=== PATIENT | male | born 2000 | race Caucasian/White ===

== ENCOUNTER 2019-11-22 17:21 | Emergency (ER) | payer OTHER ==
[~2019-11-22] VITALS: Ht 175.3 cm; Wt 90.9 kg
[2019-11-22 17:47] VITALS: TEMP 97.7
[2019-11-22 21:08] VITALS: BP 110/75; PULSE 62
== END 2019-11-22 21:10 | disposition home or self-care (01) ==
LOC: COL.ER 17:21
DX: S01.01XA Laceration without foreign body of scalp, initial encounter (principal); W18.30XA Fall on same level, unspecified, initial encounter; Y92.009 Unspecified place in unspecified non-institutional (private) residence as the place of occurrence of the external cause

== ENCOUNTER → 2019-12-02 | Outpatient (CLI) | payer OTHER ==
[2019-12-02 18:16] VITALS: BP 118/71; PULSE 66; TEMP 99.2
== END ==
LOC: COL.ER 17:49
DX: Z48.02 Encounter for removal of sutures (principal)